=== PATIENT | male | born 1985 | race African-American/Black ===

== ENCOUNTER 2018-11-30 05:25 | Emergency (ER) | payer OTHER ==
[2018-11-30] MEDS ORDERED: Ibuprofen 600 MG Tab PO ONE (05:31)
--- NOTE | 2018-11-30 05:40 | EDM.PDOC ---
ED HPI GENERAL MEDICAL PROBLEM - General Stated Complaint: INJURED LT THUMB Time Seen by Provider: 11/30/18 05:28 Source of Information: Reports: Patient History Limitations: Reports: No Limitations - History of Present Illness INITIAL COMMENTS - FREE TEXT/NARRATIVE: 33 y.o.b male came to the ed after he injured his left thumb at work. Pt has limited ROM of his left thumb, No other acute medical issues. BP 166/114 RR 16 Pulse ox 99% on RA Pulse 90 Temp 36.8 Onset Date: 11/30/18 Onset Time: 03:00 Duration: Hour(s): Location: Reports: Upper Extremity, Left (left hand) Quality: Reports: Ache, Dull, Pressure Severity: Mild Improves with: Reports: Rest Worsens with: Reports: Movement Context: Reports: Trauma Associated Symptoms: Reports: No Other Symptoms left hand Pain Score (Numeric/FACES): 9 - Related Data Allergies Allergy/AdvReac Type Severity Reaction Status Date / Time No Known Allergies Allergy Verified 11/30/18 06:16 Home Meds: Home Meds NK [No Known Home Meds] 11/30/18 [History] Review of Systems - Review of Systems Review Of Systems: See Below Constitutional: Reports: No Symptoms Eyes: Reports: No Symptoms Ears: Reports: No Symptoms Nose: Reports: No Symptoms Mouth/Throat: Reports: No Symptoms Respiratory: Reports: No Symptoms Cardiovascular: Reports: No Symptoms GI/Abdominal: Reports: No Symptoms Genitourinary: Reports: No Symptoms Musculoskeletal: Reports: Hand Pain (with deformity) Skin: Reports: No Symptoms Neurological: Reports: No Symptoms Psychiatric: Reports: No Symptoms ED EXAM, GENERAL - Physical Exam Exam: See Below Exam Limited By: No Limitations General Appearance: Alert, WD/WN, Mild Distress Eye Exam: Bilateral Eye: Normal Inspection Ears: Normal External Exam Ear Exam: Bilateral Ear: Auricle Normal Nose: Normal Inspection, Normal Mucosa Throat/Mouth: Normal Inspection, Normal Lips, Normal Voice, No Airway Compromise Head: Atraumatic, Normocephalic Neck: Normal Inspection, Supple, Non-Tender, Full Range of Motion Respiratory/Chest: No Respiratory Distress, Lungs Clear, Normal Breath Sounds, No Accessory Muscle Use, Chest Non-Tender Cardiovascular: Normal Peripheral Pulses, Regular Rate, Rhythm, No Edema, No JVD , No Murmur, No Rub GI/Abdominal: Normal Bowel Sounds, Soft, Non-Tender, No Organomegaly, No Distention, No Abnormal Bruit, No Mass, Pelvis Stable (Male) Exam: Deferred Rectal (Males) Exam: Deferred Back Exam: Normal Inspection, Full Range of Motion Extremities: Normal Inspection, Normal Range of Motion, Non-Tender Neurological: Alert, Oriented, CN II-XII Intact, Normal Cognition Psychiatric: Normal Affect, Normal Mood Skin Exam: Warm, Dry, Intact, Normal Color, No Rash Lymphatic: No Adenopathy Course - Vital Signs Text/Narrative:: 33 y.o.b male came to the ed after he injured his left thumb at work. Pt has limited ROM of his left thumb, No other acute medical issues. BP 166/114 RR 16 Pulse ox 99% on RA Pulse 90 Temp 36.8 Imaging: Subluxed proximal thumb with avulsion Fx of the base of the distal 1st phalanx of left thumb Procedure: Metal splint applied by nurse to left thump Impression: Subluxed proximal thumb with avulsion Fx of the base of the distal 1st phalanx of left thumb Tx: Metal splint, Motrin, ICE Reexam: Improved Plan: D/C with instruction Last Recorded V/S: Last Vital Signs Temp 36.8 C 11/30/18 05:30 Pulse 67 11/30/18 07:25 Resp 14 11/30/18 07:25 BP 152/93 H 11/30/18 07:25 Pulse Ox 99 11/30/18 07:25 - Orders/Labs/Meds Meds: Medications Discontinued Medications Generic Name Dose Route Start Last Admin Trade Name Freq PRN Reason Stop Dose Admin Ibuprofen 600 mg 11/30/18 05:31 11/30/18 06:33 Motrin PO 11/30/18 05:32 600 mg ONETIME ONE Administration Departure - Departure Time of Disposition: 07:14 Disposition: Home, Self-Care 01 Condition: Good Clinical Impression: Subluxation of left thumb Qualifiers: Encounter type: initial encounter Qualified Code(s): S63.102A - Unspecified subluxation of left thumb, initial encounter Avulsion fracture of distal phalanx of finger Qualifiers: Encounter type: initial encounter Fracture type: closed Qualified Code(s): S62.639A - Displaced fracture of distal phalanx of unspecified finger, initial encounter for closed fracture - Discharge Information Instructions: [facility] for Routine Care of Injuries Referrals: PCP,None [Primary Care Provider] - Radu Schumacher DO [Physician] - Forms: ED Return to Work/School Form Additional Instructions: Rest, ICE and elevation, Motrin for pain, please f/u with your PMD/Ortho in next 3 days, wear splint, come back if your symptoms get worse acutely.
--- NOTE | 2018-12-03 11:18 | CR ---
INDICATION: Trauma. Jammed base of left thumb. LEFT THUMB: Three views of the left thumb were obtained and reveals what appears to be ununited accessory ossification center or ununited chip fracture fragment along the ventral medial aspect of the joint surface of the distal phalanx of the thumb. What appear to be accessory ossicles are noted at the distal metaphysis of the first metacarpal. No acute fracture or dislocation was identified. IMPRESSION: No acute fracture or dislocation identified. However, if occult fracture site is suspected clinically--if symptoms persist--re-examination in 10 -14 days may be helpful. MARIELLA
== END 2018-11-30 07:27 | disposition home or self-care (01) ==
LOC: FB.ED 05:25
DX: S62.522A Displaced fracture of distal phalanx of left thumb, initial encounter for closed fracture (principal); S63.102A Unspecified subluxation of left thumb, initial encounter; X58.XXXA Exposure to other specified factors, initial encounter
CPT/HCPCS: 73140-FA; 99283; A9270-GY